=== PATIENT | male | born 2000 | race Caucasian/White ===

== ENCOUNTER 2020-07-11 06:56 | Outpatient (NON) | payer OTHER, SELFPAY ==
[2020-07-11 18:19] LABS: SARS-CoV-2 RNA PCR Positive
== END 2020-07-11 06:57 ==
LOC: ANHCOVIDDT 07:02
PROVIDERS: PCP Pediatrics; Visit Provider Pediatrics
DX: U07.1 COVID-19 (principal)
CPT/HCPCS: 87635; C9803; U0003